=== PATIENT | male | born 1945 | race Caucasian/White ===

== ENCOUNTER 2024-12-15 03:03 | Emergency (ER) | payer MEDICARE ==
[~2024-12-15] VITALS: Ht 177.8 cm; Wt 89.4 kg
[2024-12-15] MEDS: IPRATROPIUM 0.5MG/ALBUTEROL 2.5MG INH SOL UD 3ML NEB ONE (08:33)
[2024-12-15] MEDS ORDERED: VENTAER INH (10:12)
[2024-12-15] MEDS ORDERED: PRED20TA PO (10:12)
[2024-12-15 10:19] VITALS: BP 125/81; TEMP 97.4; O2SAT 96
== END 2024-12-15 10:21 | disposition home or self-care (01) ==
LOC: M ED 03:03
DX: J20.4 Acute bronchitis due to parainfluenza virus (principal); J44.9 Chronic obstructive pulmonary disease, unspecified; N40.0 Benign prostatic hyperplasia without lower urinary tract symptoms; Z88.1 Allergy status to other antibiotic agents; Z79.51 Long term (current) use of inhaled steroids; Z79.52 Long term (current) use of systemic steroids